=== PATIENT | female | born 1995 | race Caucasian/White ===

== ENCOUNTER → 2016-09-29 13:55 | Outpatient (CLI) | payer BC ==
[2016-09-29 14:36] LABS: APPEARANCE CLEAR (CLEAR); BILIRUBIN NEGATIVE (NEGATIVE); COLOR YELLOW (YELLOW); GLUCOSE NEGATIVE (NEGATIVE); KETONE NEGATIVE (NEGATIVE); LEUKOCYTE ESTERASE 1+ (NEGATIVE); NITRITE NEGATIVE (NEGATIVE); PROTEIN NEGATIVE (NEGATIVE); UROBILINOGEN NORMAL (NORMAL)
[2016-09-29 14:38] LABS: BACTERIA MODERATE /hpf (NONE SEEN); EPITHELIAL CELLS 0-5 /hpf (0-5); RED CELLS - URINE NONE SEEN /hpf (0-5); WHITE CELLS - URINE 0-5 /hpf (0-5)
== END | disposition home or self-care (01) ==
LOC: D.LDO 13:55
PROVIDERS: Obstetrics & Gynecology
DX: O36.8130 Decreased fetal movements, third trimester, not applicable or unspecified (principal); Z3A.40 40 weeks gestation of pregnancy

== ENCOUNTER → 2016-10-02 09:04 | Outpatient (CLI) | payer BC ==
[~2016-10-02 09:04] MED LIST: ACETAMINOPHEN500 M1 PO; HYDROCODONE-APA1 TAB PO; IBUPROFEN600 MG PO; PRENATAL COMPLE1 TAB PO
[2016-10-02 18:47] VITALS: BMI 27.5
== END | disposition home or self-care (01) ==
LOC: D.LDO 09:04
DX: O48.0 Post-term pregnancy (principal); Z3A.40 40 weeks gestation of pregnancy

== ENCOUNTER 2016-10-02 18:27 | Inpatient (IN) | payer BC ==
[~2016-10-02] VITALS: Ht 162.6 cm; Wt 72.6 kg
[2016-10-02] MEDS ORDERED: ACETAMINOPHEN500 M1 PO (18:46)
[2016-10-02] MEDS ORDERED: PRENATAL COMPLE1 TAB PO (18:46)
[2016-10-02 18:47] VITALS: BP 144/87; Ht 162.6 cm; Wt 72.6 kg
[2016-10-02 19:09] LABS: HEMATOCRIT 40.2 % (36.0-48.0); HEMOGLOBIN 13.5 g/dL (12-16); MCH 30.5 pg (26.0-34.0); MCHC 33.6 g/dL (31.0-37.0); MEAN PLATELET VOLUME 11.8 fL (7.4-10.4); RBC 4.42 10x6/uL (4.00-5.40); RDW 13.4 % (11.5-14.5); WBC 12.6 10x3/uL (4.8-10.8)
--- NOTE | 2016-10-02 23:21 | NUR ---
L&D NURSES ALONG WITH DR ALARCON AND NEPTALI BRITO BROUGHT PATIENT INTO ROOM BEFORE ALL CALL TEAM HERE-JUDY DEVI, NO COUNT WAS DONE DR ALARCON PREPPED PATIENT, AND WHEN I ARRIVED, JUDY LUBIN, L&D NURSES LEFT WITH NO HAND OFF ASKED FOR A REPORT AND NURSE THAT BROUGHT PATIENT TO ROOM TO GET INFORMATION ABOUT PATIENT ALONG WITH CHART, LONNIE MICHAEL CAME TO ROOM WITH CHART AND SHARED WHO BROUGHT PATIENT IN, PATIENT WAS NOT SECURED ON BED NO BOVIE PAD WAS PLACED, NO SCDS, AND NO KIND OF COUNT WAS ATTEMPTED. OR CREW DID COUNT LAPS AND 10 WERE PRESENT, X-RAY TAKEN FOR COUNT. 2253 VIABLE BABY GIRL DELIVERD CORD BLOOD AND GASES DONE AND SENT OUT,FRANCIA.
--- NOTE | 2016-10-02 23:51 | NUR ---
1419 X-RAY CLEARED BY ISRAEL DUDLEY.
[2016-10-03] VITALS (11 sets, daily range): BP systolic 113–140; BP diastolic 69–97
--- NOTE | 2016-10-03 00:19 | NUR ---
PT RECEIVED TO ROOM 1218 VIA RECOVERY ROOM NURSE. AAOX3. VSS. ORIENTED PT TO ROOM AND CALL LIGHT AT THIS TIME. NS WITH PIT @ 125 CC/HR INITIATED AT THIS TIME. IV NOTED TO RIGHT HAND. PATENT. DRESSING CDI. HEART RRR. LUNG SOUNDS CLEAR BILATERALLY. BOWEL SOUNDS HYPOACTIVE X4 QUADRENTS. ABDOMEN SOFT WITH TENDERNESS. FUNDUS FIRM AND MIDLINE U/U. LIGHT LOCHIA RUBRA NOTED TO TONI PAD AND BLUE PAD AT THIS TIME. PERFORMED TONI CARE AND PLACED CLEAN TONI PAD AND BLUE TONY. WONG ATTACHED TO RIGHT THIGH DRAINING KATYA URINE. SCDS INITIATED TO BLE AT THIS TIME. PEDAL PULSES EQUAL BILATERALLY. PT INSTRUCTED ON USING IS AT THIS TIME. PT VERBALIZES UNDERSTANDING AND PERFORMS DEMONSTRATION. PULLS 1999. PT REQUESTS ICE CHIPS AT THIS TIME. DENIES OTHER NEEDS. BED LOW. PHONE AND CALL LIGHT IN REACH. SRX2.
--- NOTE | 2016-10-03 01:30 | NUR ---
SHAKIRA RN IN ROOM WITH PT AT THIS TIME ASSISTING WITH . NO NEEDS NOTED.
--- NOTE | 2016-10-03 02:51 | NUR ---
PT SITTING UP IN BED AT THIS TIME WATCHING TV. MODERATE LOCHIA RUBRA NOTED TO TONI PAD AND LIGHT LOCHIA RUBRA NOTED TO BLUE TONY AT THIS TIME. PLACED NEW TONI PAD AND BLUE PAD AT THIS TIME. PT REQUESTS ICE WATER. DENIES OTHER NEEDS. BED LOW. PHONE AND CALL LIGHT IN REACH. SRX2.
--- NOTE | 2016-10-03 02:58 | NUR ---
RETURNED TO RADIANT WARMER AFTER BATH. SERVO TEMP PROBE TO ABD.. PULSE OX 98% ON ROOM AIR. FOB WITH BABY
--- NOTE | 2016-10-03 04:28 | NUR ---
PT SITTING UP IN BED LOOKING AT IN OPEN CRIB AT BEDSIDE. FOB AT BEDSIDE WELL. SCANT LOCHIA RUBRA NOTED TO TONI PAD AT THIS TIME. FUNDUS FIRM AND MIDLINE. U/U. PT DENIES NEEDS AT THIS TIME. BED LOW. PHONE AND CALL LIGHT IN REACH. SRX2.
--- NOTE | 2016-10-03 05:55 | NUR ---
PT LYING IN BED RESTING QUIETLY AT THIS TIME. AT BEDSIDE IN OPEN CRIB. NO LOCHIA RUBRA NOTED TO TONI PAD AT THIS TIME. PT DENIES NEEDS. BED LOW. PHONE AND CALL LIGHT IN REACH. SRX2.
[2016-10-03 06:33] LABS: BASOPHILS 0.1 % (0-2); EOSINOPHILS 0 % (0-7); HEMATOCRIT 36.1 % (36.0-48.0); IMMATURE GRANULOCYTES 0.4 % (0-5); LYMPHOCYTES 8.2 % (15-50); MCH 30.5 pg (26.0-34.0); MCHC 33.2 g/dL (31.0-37.0); MCV 91.9 fL (80.0-100.0); MEAN PLATELET VOLUME 11.7 fL (7.4-10.4); MONOCYTES 7.7 % (2-11); NEUTROPHILS 83.6 % (40-80); RBC 3.93 10x6/uL (4.00-5.40); RDW 13.5 % (11.5-14.5)
[2016-10-03 06:36] LABS: PLATELET COUNT 155 10x3/uL (130-400)
--- NOTE | 2016-10-03 07:40 | NUR ---
PATIENT IS AWAKE AND ALERT, SITTING UPRIGHT IN HER BED, HOLDING AN EMESIS BAG. SHE HAS VOMITED JUST UNDER 300CC OF PALE GREEN LIQUID. SHE HAS BEEN DRINKING WATER. ZOFRAN GIVEN IV. IVF AND LIFT SUPERVISOR ARE INFUSING PER ORDERS, TUBING NOTED TO BE LEAKING, CHANGED. FOB AT THE BEDSIDE. INFANT IS IN MOTHER'S ARMS NURSING. THERE IS MILK NOTED IN THE NIPPLE SHIELD AND IS EAGER. MOB AND FOB ARE INTERACTING LOVINGLY AND AFFECTIONATELY WITH THE . FF U/1, MIDLINE, PERIPAD WITH SCANT BLEEDING NOTED. LIFT SUPERVISOR IN USE. SHE STATE STATES THAT THE MEDICATIONS IS MAKING HER ITCH AND IS EAGER TO START ON A DIFFERENT PAIN MEDICATION. SHE IS ALSO ASKING ABOUT GETTING UP TO SHOWER AT SOME POINT TODAY. ADVISED THAT WE WOULD HAVE TO SEE WHAT INSTRUCTIONS WE GET FROM MD TODAY.
--- NOTE | 2016-10-03 08:10 | NUR ---
PATIENT IS SITTING UP IN HER BED, STATES THAT SHE IS FEELING SOME BETTER. FOB HELD WHILE I REPOSITIONED MOB FOR COMFORT IN BED. INFANT RETURNED TO HER TO NURSE ON OTHER BREAST. LATCHED TO THE NIPPLE SHIELD WELL. CALL LIGHT IS WITHIN MOTHER'S REACH WHEN I LEFT,
[2016-10-03 15:32] LABS: BASOPHILS 0.1 % (0-2); EOSINOPHILS 0 % (0-7); HEMATOCRIT 34.2 % (36.0-48.0); HEMOGLOBIN 11.3 g/dL (12-16); IMMATURE GRANULOCYTES 0.3 % (0-5); LYMPHOCYTES 8.8 % (15-50); MCV 90.7 fL (80.0-100.0); MEAN PLATELET VOLUME 11.6 fL (7.4-10.4); MONOCYTES 5.8 % (2-11); PLATELET COUNT 171 10x3/uL (130-400); RBC 3.77 10x6/uL (4.00-5.40); RDW 13.5 % (11.5-14.5); WBC 12.9 10x3/uL (4.8-10.8)
--- NOTE | 2016-10-03 19:28 | NUR ---
PM ROUNDS MADE, PT IS AT THIS TIME, INFORMED PT THAT I WILL COME BACK TO DO ASSESSMENT WHEN SHE IS FINISHED , PT VERBALIZES UNDERSTANDING, REQUESTED AND NOTIFIED NSY FOR ASSISTANCE WITH , FOB AND FAMILY AT BEDSIDE
--- NOTE | 2016-10-03 20:27 | NUR ---
ASSESSMENT PER FLOW SHEET, VS OBTAINED, SALINE LOCK IN RIGHT HAND INTACT WITH NO REDNESS OR EDEMA, FF, ML, U/1, PT REPORTS LITE BLEEDING WITH NO CLOTS, BIKINI INC WITH CLARISSE CDI WITH NO DRAINAGE NOTED, TONI PAD OVER INC FOR COMFORT AND MOISTURE CONTROL, PT REQUESTED AND PROVIDED ICE PACK, PT REPORTS FLATUS, NO BM AND VOIDING BY SELF WITH NO DIFFICULTY, PT C/O CRAMPING, ADM MOTRIN PO PER MD ORDERS, SEE EMAR, INFORMED PT THAT PAIN MED WAS DUE AT 2119, PT VERBALIZES UNDERSTANDING, DENIES FURTHER NEEDS, FOB AT BEDSIDE
--- NOTE | 2016-10-03 21:28 | NUR ---
PT BABY, ADM NORCO PO PER MD ORDERS, SEE EMAR, PT DENIES FURTHER NEEDS AT THIS TIME, BEDDING PROVIDED TO FOB
--- NOTE | 2016-10-03 22:14 | NUR ---
LATE ENTRY: SCD'S APPLIED AND WORKING PROPERLY
--- NOTE | 2016-10-03 22:14 | NUR ---
PT RESTING, FOB AT BEDSIDE, SALINE LOCK FLUSHED, DENIES FURTHER NEEDS
--- NOTE | 2016-10-04 00:23 | NUR ---
PT RESTING WITH EYES CLOSED, RESP QUIET, NO DISTRESS NOTED, LEFT UNDISTURBED AT THIS TIME, FOB ASLEEP IN RECLINER
--- NOTE | 2016-10-04 02:08 | NUR ---
PT AWAKE, BABY, INST PT TO USE CALL LIGHT WHEN FINISHED, AND I WILL OBTAIN VS AND ADM PAIN MED, PT VERBALIZES UNDERSTANDING, DENIES NEEDS AT THIS TIME, FOB AT BEDSIDE
[2016-10-04 02:19] VITALS: BP 115/72
--- NOTE | 2016-10-04 02:19 | NUR ---
PT DERMATOLOGY SPECIALIST LIGHT, BABY TO NSY VIA OPEN CRIB CART PER THIS RN, ADM ELODIA AND MOTRIN PO PER MD ORDERS, SEE EMAR, SCD'S OFF, PT UP TO BR, GAIT STEADY, REQUESTED AND PROVIDED TONI PANTIES AND A FRESH ICE PACK, PT VOIDED BY SELF WITH NO DIFFICULTY, PT BACK TO BED, SCD'S REAPPLIED AND WORKING PROPERLY, PT DENIES FURTHER NEEDS, FOB AT BEDSIDE
--- NOTE | 2016-10-04 03:25 | NUR ---
PT RESTING WITH EYES CLOSED, RESP QUIET, NO DISTRESS NOTED, LEFT UNDISTURBED AT THIS TIME, FOB ASLEEP IN RECLINER
--- NOTE | 2016-10-04 05:07 | NUR ---
PT AWAKE, BABY, REPORTS PAIN "IT'S OK", DENIES NEEDS OR NEED FOR PAIN MED AT THIS TIME, FOB AT BEDSIDE
--- NOTE | 2016-10-04 05:45 | NUR ---
PT AMB IN CROSS, GAIT STEADY, WITH BABY VIA OPEN CRIB CART AND FOB AT SIDE, TO SAIRAY
--- NOTE | 2016-10-04 05:47 | NUR ---
PT BACK TO ROOM, DENIES NEEDS AT THIS TIME
--- NOTE | 2016-10-04 06:36 | NUR ---
SHIFT REPORT TO DAY SHIFT
--- NOTE | 2016-10-04 06:45 | NUR ---
SBAR HANDOFF RECEIVED FROM Jordy FIGUEREDO RN. MOTHER REMAINS STABLE WITH NO SIGNS OF DISTRESS NOTED OR REPORTED. LYING IN BED ON SIDE. FOB ATTENTIVE AT BEDSIDE
[2016-10-04 07:10] VITALS: BP 115/75
--- NOTE | 2016-10-04 07:40 | NUR ---
SITTING IN BED WITH FOB AT BEDSIDE. VITAL SIGNS TAKEN AND RECORDED. S/R UP X 2, BED IN LOWEST POSITION, CALL LIGHT WITHIN REACH.
--- NOTE | 2016-10-04 08:13 | NUR ---
PAIN MEDICATION PROVIDED ORDERED AND REQUESTED FOR PAIN OF 6 ON NUMERIC SCALE. ICE BAG REPLENISHED. S/R UP X 2, BED IN LOWEST POSITION, CALL LIGHT WITHIN REACH.
--- NOTE | 2016-10-04 08:45 | NUR ---
DR ALARCON MAKING ROUNDS. MOTHER UP AND ABOUT IN ROOM. REMAINS STABLE
--- NOTE | 2016-10-04 08:58 | NUR ---
REASSED PAIN DOWN TO 4 ON NUMERIC PAIN SCALE DENIES NEED FOR FURTHER MEDICATION. STATES NO FURTHER NEEDS AT THIS TIME. WILL CONTINUE TO MONITOR.
--- NOTE | 2016-10-04 09:20 | NUR ---
FRESH ICE WATER PROVIDED. PT AND FOB STATE THAT PHYSICIAN EXPRESSED THE POSSIBILITY OF GOING HOME THIS EVENING BUT BOTH PARENTS PREFER TO STAY ONE MORE NIGHT. STATE NO FURTHER NEEDS AT THIS TIME.
--- NOTE | 2016-10-04 11:24 | NUR ---
SITTING IN BED WITH FAMILY AROUND HER. INFANT IN FEMALE FAMILY MEMBER'S ARMS. STATES PAIN DOWN TO 4 ON NUMERIC SCALE AND THAT SHE HAS NO FURTHER NEEDS AT THIS TIME. WILL CONTINUE TO MONITOR.
--- NOTE | 2016-10-04 12:41 | NUR ---
SITTING IN BED WITH FAMILY AND FRIENDS AT BEDSIDE. PROVIDED CRACKERS REQUESTED. STATES NO FURTHER NEEDS AT THIS TIME.
[2016-10-04 13:00] VITALS: BP 119/80
--- NOTE | 2016-10-04 13:17 | NUR ---
REQUESTS PAIN MED. EXPLAINED A BIT TOO EARLY FOR NORCO, WILL GIVE IN 30 MIN. PATIENT STATES SHE DRANK CARBONATED BEVERAGE WHICH THEN GAVE HER GAS PAIN IN ABD. ENCOURAGED TO WALK IN CROSS AND AVOID CARBONATED BEVERAGES. FOB ATTENTIVEE AT BEDSIDE. PARENTS BONDING WELL WITH INFANT.
--- NOTE | 2016-10-04 14:30 | NUR ---
REPORTS PAIN SUBSIDING.
--- NOTE | 2016-10-04 15:23 | NUR ---
REFUSES IBUPROFEN AT THIS TIME. UP AND ABOUT IN ROOM VISITING WITH VISITORS. HAS WALKED IN CROSS X 1 TODAY
--- NOTE | 2016-10-04 17:00 | NUR ---
REPORTS IBUPROFEN HELPED PAIN. AMBULATING IN CROSS WITH AND FOB.
--- NOTE | 2016-10-04 18:00 | NUR ---
REMAINS STABLE WITH NO SIGNS OF DISTRESS NOTED OR REPORTED.
[2016-10-04 19:15] VITALS: BP 138/82
--- NOTE | 2016-10-04 19:15 | NUR ---
AWAKE DURING INITIAL ROUNDS. INTRODUCED SELF. V/S TAKEN. ASSESSMENT DONE. STATUS POST PRIMARY C/S FOR POSS ABRUPTION--DAY 2. . LOW TRANSVERSE ABD INCISION WITH CLARISSE INTACT. REFILLED ICE PACK TO ABD PER PT's REQUEST. IN THE ROOM. FOB HERE, FAMILY VISITING. LOCHIA SEMAJRA LIGHT, VOIDING WELL, PASSING FLATUS PER PT.
--- NOTE | 2016-10-04 19:54 | NUR ---
PAIN LEVEL "5"/10 FROM ABD INCISION. NORCO 10/325 1tab PO GIVEN FOR PAIN MANAGEMENT.
--- NOTE | 2016-10-04 21:20 | NUR ---
CALL LIGHT ANSWERED. ASSISTED WITH UNTIL BABY LATCHED-ON. BONDING WELL.
--- NOTE | 2016-10-04 22:04 | NUR ---
CALL LIGHT ANSWERED. MOTRIN 600mg 1tab PO GIVEN FOR BREAK-THROUGH PAIN. INFANT IN THE NURSERY.
--- NOTE | 2016-10-04 22:09 | NUR ---
AMBULATING IN THE CROSS WITH IN OPEN CRIB TO THE NURSERY.
--- NOTE | 2016-10-05 01:00 | NUR ---
NURSERY NURSE BROUGHT BABY TO MOM FOR .
[2016-10-05 01:26] VITALS: BP 120/74
--- NOTE | 2016-10-05 01:27 | NUR ---
MEDICATED FOR PAIN WITH NORCO 1tab. SEE E-MAR.
--- NOTE | 2016-10-05 01:30 | NUR ---
BROUGHT BABY TO THE NUSERY IN OPEN CRIB.
--- NOTE | 2016-10-05 02:30 | NUR ---
NURSERY NURSE BROUGHT BABY TO MOM'S ROOM FOR FEEDINGS. BONDING WELL.
--- NOTE | 2016-10-05 03:20 | NUR ---
BABY BACK IN THE NURSERY IN OPEN CRIB.
--- NOTE | 2016-10-05 05:09 | NUR ---
EYES CLOSED. LEFT UNDISTURBED. FOB IN THE ROOM.
--- NOTE | 2016-10-05 06:01 | NUR ---
SLEPT ON AND OFF DURING THE NIGHT FOR 'S FEEDING TIMES. ANTICIPATES DISCHARGE TODAY. CONTINUING PLAN OF CARE.
--- NOTE | 2016-10-05 06:37 | NUR ---
DR. ALARCON HERE ON ROUNDS.
--- NOTE | 2016-10-05 06:43 | NUR ---
CALL LIGHT ANSWERED. PAIN LEVEL 08/24. NORCO/MORTIN GIVEN FOR PAIN MANAGEMENT. INFANT IN HER ARMS. FOB HERE.
--- NOTE | 2016-10-05 06:51 | OP ---
PATIENT NAME: BRIGIDA SOFIA MEDICAL RECORD: [id number] LOCATION:[facility][id number] ADMISSION DATE:10/02/16 SURGEON: ARTURO GALEANA MD DATE OF OPERATION: 10/02/2016 PREOPERATIVE DIAGNOSES: 1. Term intrauterine in labor. 2. bradycardia. POSTOPERATIVE DIAGNOSES: 1. Term intrauterine in labor. 2. bradycardia. PROCEDURE: Emergent primary low transverse section. SURGEON: Arturo Galeana MD. ESTIMATED BLOOD LOSS: 1000 cc. INTRAVENOUS FLUIDS: Per anesthesia record. SPECIMENS: Placenta and cord for gases. FINDINGS: 1. Particulate meconium. 2. Viable infant, Apgars 9 at 1 and 9 at 5. 3. Placenta delivered manually intact, 3-vessel cord noted. 4. Grossly normal adnexa bilaterally. COMPLICATIONS: None apparent. PROCEDURE IN DETAIL: The patient was taken to the operating room where epidural anesthesia was achieved without difficulty. The patient was then prepped and draped in normal sterile fashion in the dorsal supine position. SCDs were on and functioning normally. Romero catheter was placed and was draining freely. Following draping and prepping, a Pfannenstiel skin incision was made, extended downward to the underlying subcutaneous fat to the level of the fascia, which was then excised in the midline and dissected bilaterally using the Duke scissors. The superior and inferior aspects of the fascial incision were then tented upward and sharply dissected from the underlying rectus muscle using the Duke scissors and Bovie cautery. The rectus muscles were then bluntly in the midline. The peritoneum entered at the superior aspect of the incision bluntly. Peritoneal incision was then stretched. A bladder blade was placed into the pelvis. Low transverse incision was made in the uterus and extended superiorly and inferiorly using the Pelosi method. Infant's head was delivered atraumatically followed by the body and it was bulb suctioned upon delivery. Cord was clamped times 2 and cut. The was handed to the awaiting nursery team expeditiously due to the thick meconium. Cord was obtained for gases, placenta was then removed manually intact, 3-vessel cord was noted. Uterus was exteriorized, cleared of all clots and debris, massaged vigorously until a good uterine tone was noted. The uterine incision was repaired in a running locked fashion with 0 Vicryl times 2 with good hemostasis noted. Posterior cul-de-sac was then thoroughly irrigated and uterus replaced into the pelvis. The anterior cul-de-sac was then irrigated and meticulous hemostasis was noted from the uterine incision. Anterior cul-de-sac was then thoroughly irrigated. Counts OPERATIVE REPORT [id number] BRIGIDA SOFIA were correct times 2. The fascia was repaired with 0 loop PDS times 1 and the skin repaired with sharon. TRANSINT:[id number] Voice Confirmation ID: [id number] DOCUMENT ID: [id number] ARTURO GALEANA MD at 0651 CC: [id number] DICTATION DATE: 10/04/16 0815 ROSE GROWER: 10/04/16 1658 ADM IN [facility] [address] [place] [address]
[2016-10-05 07:39] VITALS: BP 122/82
--- NOTE | 2016-10-05 08:24 | NUR ---
PT IS SITTING UP IN BED. EATING BREAKFAST. FOB AT BEDSIDE HOLDING BABY. GEN- AWAKE AND ALERT. LUNGS- CLEAR. HEART- RRR. ABD- SOFT, WITH TENDERNESS NOTED. LOW TRANSVERSE INCISION WITH CLARISSE NOTED. INCISION IS CLEAN DRY AND INTACT. EXT- NO EDEMA. BED IS LOW, SIDE RAILS UP X 2 AND CALL LIGHT IN REACH. PT IS BABY. HER PAIN IS A 2.
--- NOTE | 2016-10-05 08:37 | NUR ---
PT TOOK A SHOWER. TOLERATED WELL. INCISION PATTED DRY. INCISION CARE GIVEN. FOB AT BEDSIDE.
--- NOTE | 2016-10-05 08:38 | NUR ---
BABY TO ROOM TO BREAST FEED.
--- NOTE | 2016-10-05 08:45 | NUR ---
PT IS GETTING DRESSED AND WALKING AROUND IN ROOM, GETTING THINGS TOGETHER FOR DISCHARGE. STATES THAEY WOULD LIKE TO BE DISCHARGED AROUNG 12 IF POSSIBLE.
--- NOTE | 2016-10-05 09:15 | NUR ---
PT IS BABY. FOB AT BEDSIDE. WEIGHT LOSS SALES CONSULTANT HERE TO SEE PT.
--- NOTE | 2016-10-05 09:26 | NUR ---
Iram Holcomb 10/05/16 S: Patient states this is her first baby and is going good. States baby eats really good, she is pretty mellow. O: Patient sitting up in bed feeding , infant in football hold on left breast. FOB standing next to bedside. Observed feeding, mouth is about 100 degrees, sucking in a rocking motion. Asked patient if her nipples are sore, she states yes. Infant right nipple is red, patient states sensitive to touch, possible due to incorrect latch. Infant removed herself from off the left breast. Left breast nipple is red also. Fixing latch will help with sore nipples. Explain how to hold infant for feedings. Turn infant tummy to tummy, nose opposite of nipple, gently support infant head, and allow infant to self-latch. should be placed directly in front of the breast. Apply lanolin after every feeding; this doesn't have to be removed prior to latching . If you don't have any lanolin, express your own breastmilk, and apply on your nipple. takes time and patience in the beginning. Provided and explained handouts on engorgement, skin to skin, waking a sleeping baby, feeding cues, hand expressing, starting a feeding, and positions for . Breastfed babies should feed on demand, when feeding cues have been observed. Allowing to feed on demand will help with establishing your milk supply. What baby takes out your body will make more of. Explain breastmilk composition. Encouraged to continue to feed baby on demand, please let us know if you have any questions or concerns. Asked if they had any questions or concerns, all declined. Will follow up. A: Client appears confident with , has sore nipples due to incorrect latch. P: Continue to support exclusively . Rj Young, CLC
[2016-10-05] MEDS ORDERED: HYDROCODONE-APA1 TAB PO (09:32)
[2016-10-05] MEDS ORDERED: IBUPROFEN600 MG PO (09:33)
--- NOTE | 2016-10-05 11:34 | NUR ---
PT IS HER BABY. SHE C/O PAIN OF A 4. NORCO 10/325 GIVEN 1 PO.
--- NOTE | 2016-10-05 12:28 | NUR ---
PT IS FEEDING BABY . SHE OFFERS NO COMPLAINTS. SIDE RAILS UP X 2, CALL LIGHT IN REACH AND BED IS LOW.
--- NOTE | 2016-10-05 12:29 | NUR ---
PT TAKEN TO FRONT OF HOSPITAL BY WHEELCHAIR.
[2016-10-06 04:14] LABS: RAPID PLASMA REAGIN Non Reactive (Non Reactive)
== END 2016-10-05 12:30 | disposition home or self-care (01) | DRG 766 ==
LOC: D.LD 18:27 → D.WS 18:27 → D.LD 10-05 04:30 → D.WS 10-05 12:30
PROVIDERS: ADMIT Obstetrics & Gynecology
PROC: 10907ZC Drainage of Amniotic Fluid, Therapeutic from Products of Conception, Via Natural or Artificial Opening (ICD-10-PCS; 2016-10-02)
PROC: 10D00Z1 Extraction of Products of Conception, Low, Open Approach (ICD-10-PCS; principal; 2016-10-02 22:30)
DX: O76 Abnormality in fetal heart rate and rhythm complicating labor and delivery (principal); Z3A.40 40 weeks gestation of pregnancy; Z37.0 Single live birth